=== PATIENT | female | born 1990 | race Caucasian/White ===

== ENCOUNTER 2024-12-12 12:46 | Emergency (ER) | payer OTHER, SELFPAY ==
[2024-12-12 13:02] VITALS: BP 127/82; BP 150/100; PULSE 106; PULSE 120; RESP 25; TEMP 36.7; O2SAT 100; O2SAT 95; BMI 29.3
--- NOTE | 2024-12-12 13:04 | ED_ITS ---
HPI - Allergic Reaction General Chief complaint: Allergic Reaction Stated complaint: ANAPHYLAXIS,13 WKS PREG,ALLERGY TO PEANUTS PER EMS Time Seen by Provider: 12/12/24 12:49 Source: patient and EMS Mode of arrival: EMS Limitations: no limitations History of Present Illness HPI narrative: This is a 34 years old the patient presented to the emergency department complaining of allergic reaction. She was in the shower she became I was sudden onset of the wheezing itching ambulance was called she was given epinephrine nebulizer albuterol and IV Solu-Medrol patient is also about 13 weeks gestation complaint: allergic reaction Onset (ago): hour(s) (1) Exposure: unknown Symptoms: difficulty breathing Severity: moderate Treatment prior to arrival: none Related Data Previous Rx's ?Medication ?Instructions ?Recorded epinephrine 0.3 mg/0.3 mL 0.3 mg (0.3 mL) IM Q10M PRN 12/12/24 injection, auto-injector (EpiPen) anaphylaxis #1 ea Allergies Allergy/AdvReac Type Severity Reaction Status Date / Time peanut Allergy Severe Anaphylaxis Verified 12/12/24 13:05 Review of Systems 2 Cardiovascular: Cardiovascular: Reports no additional cardiovascular complaints Respiratory: Respiratory: Reports as per HPI Gastrointestinal: Gastrointestinal: Reports no additional gastrointestinal complaints [facility] Past Medical History Attestation statement: The following information was validated with the patient. [facility] Narrative: Asthma peanut allergy Social History Social History Smoked in Last 30 Days: No Use of substances other than those prescribed or required for medical reasons: No Advance Directives: No Advance Directives Information Provided: Yes Do you have a plan to hurt others: No Plan Patient : No Physical Exam ED Vital Signs: Vital Signs - 24 hr 12/12/24 13:02 12/12/24 13:13 12/12/24 13:18 Temperature 98.0 F Pulse Rate 106 H 107 H 102 H Respiratory Rate 25 H 18 22 H Blood Pressure 127/82 120/68 Pulse Oximetry 95 98 Oxygen Delivery Method Room Air Room Air BMI result Body Mass Index 29.3 No acute distress Const General: cooperative Nutritional Appearance: average body habitus Orientation/consciousness: patient oriented x3 HENMT Head: Yes normal to inspection Face and sinus: Yes normal facial exam Mouth: Normal oral and palatal mucosa present Neck Neck: Yes normal visual inspection Chest Chest palpation & inspection: normal inspection of the chest Resp Auscultation: rhonchi and wheezes Cardio Jugular venous distension: no JVD Rate: regular rate Rhythm: regular rhythm GI Inspection: Yes normal to inspection Palpation (GI): Soft to palpation, not firm and nontender Skin General skin exam: no rashes or lesions noted, elasticity normal and turgor normal Neuro General: patient oriented x3 Cranial nerves: Yes CN's II-XII intact bilaterally Course Reevaluation(s) Reevaluation #1: On re-examination lungs are clear asymptomatic at this time we will observe 1 more hour and if remained stable we will discharge. I perform a POCUS OB ultrasound baby is moving well heart rate detected about 150 Time: 14:47 Reevaluation #2: Lungs clear feeling much better anticipate discharge Time: 15:20 Medications Administered Discontinued Medications Generic Name Dose Route Start Last Admin Trade Name Freq PRN Reason Stop Dose Admin Albuterol/Ipratropium 3 ml 12/12/24 13:17 12/12/24 13:18 Albuterol/Iprat 2.5/0.5mg 3 Ml Ampul.Neb INHALE 12/12/24 13:18 3 ml ONCE ONE Administration Famotidine 20 mg 12/12/24 13:03 12/12/24 13:12 Famotidine/Pf 20 Mg/2 Ml Vial IVPUSH 12/12/24 13:04 20 mg ONCE ONE Administration Sodium Chloride 1,000 mls @ 999 mls/hr 12/12/24 13:15 12/12/24 14:38 Ns IVCONT 12/12/24 14:15 Infused .Q1H1M NATAN Infusion Medical Decision Making Medical Decision Making [facility] Narrative: Patient is here with a possible allergic reaction to peanuts already got epinephrine/Solu-Medrol/low nebs. We will continue nebulizer we will add Pepcid IV fluid 15:20 she is feeling much better at this point I think she can be discharged home lungs are clear he is unclear what precipitated the allergic reaction she has an allergy to peanuts but she did not eat any peanuts. The patient was told to follow-up with the primary care physician on Saturday she may need director transition referral EpiPen was sent to the pharmacy Differential Diagnosis Differential Diagnoses: The differential diagnosis associated with the presentation includes Allergic reaction/asthma exacerbation Admission/Observation Consideration of admission/observation: Escalation of care including admission/observation considered Lab Data MDM Lab Attestation statement: I reviewed the patient's lab results. 12/12/24 13:18 12/12/24 13:19 Labs: Lab Results 12/12/24 12/12/24 Range/Units 13:18 13:19 WBC 15.2 H (4.8-10.8) X10*3/uL RBC 4.52 (4.20-5.50) X10*6/uL Hgb 13.7 (12.0-16.0) g/dl Hct 41.1 (37.0-47.0) % MCV 90.9 (80.0-98.0) fL MCH 30.3 (27.0-33.0) pg MCHC 33.3 (31.0-35.0) g/dl RDW 13.0 (11.0-16.0) % Plt Count 339 (160-400) X10*3/uL MPV 8.9 L (9.4-12.3) fL Immature Gran % (Auto) 0.5 H (0.0-0.4) % Neut % (Auto) 77.7 H (45-73) % Lymph % (Auto) 17.4 L (20-40) % [place] % (Auto) 3.0 (2-11) % Eos % (Auto) 1.1 (0-4) % Baso % (Auto) 0.3 (0-2) % Lymph # (Auto) 2.7 (1.2-4.9) X10*3/uL [place] # (Auto) 0.5 (0.1-1.2) X10*3/uL Eos # (Auto) 0.2 (0.0-0.4) X10*3/uL Baso # (Auto) 0.1 (0.0-0.2) X10*3/uL Abs Immat Gran (auto) 0.08 H (0.00-0.03) X10*3/uL Absolute Neuts (auto) 11.8 H (2.0-8.3) x10*3/uL Absolute Nucleated RBC 0.000 (0.0-0.012) X10*3/uL Nucleated RBC % (auto) 0.0 (0.0-0.2) /100WBC Sodium 141 (135-145) mmol/L Potassium 3.5 (3.3-5.1) mmol/L Chloride 106 (96-108) mmol/L Carbon Dioxide 20 L (22-29) mmol/L Anion Gap 19 (12-20) BUN 11 (9-16) mg/dL Creatinine 0.60 (0.5-1.4) mg/dL Estim Creat Clear Calc 112.6 Estimated GFR > 60 Random Glucose 119 H (60-115) mg/dL Calcium 9.3 (8.4-10.2) mg/dL Total Bilirubin 0.3 (0.0-1.0) mg/dL AST 19 (5-31) U/L ALT 12 (0-31) U/L Alkaline Phosphatase 67 (39-117) U/L Total Protein 7.1 (6.5-8.0) g/dL Albumin 3.9 (3.5-5.0) g/dL Discharge Plan Discharge Clinical Impression: Allergic reaction Qualifiers: Encounter type: initial encounter Qualified Code(s): T78.40XA - Allergy, unspecified, initial encounter Patient Disposition: Home, Self-Care Instructions: Anaphylaxis (ED) Additional Instructions: Please follow-up with your primary care physician on Saturday we sent a prescription for EpiPen at your pharmacy Prescriptions: New epinephrine [EpiPen] 0.3 mg/0.3 mL auto-injector 0.3 mg IM Q10M PRN (Reason: anaphylaxis) Qty: 1 0RF Rx Instructions: for 2 doses Referrals: Physician,Unknown J [Primary Care Provider] - 12/14/24 Print Language: Haitian
[2024-12-12] MEDS: Famotidine/PF 20 MG/2 ML VIAL IVPUSH (13:12)
[2024-12-12] MEDS: 0.9 % Sodium Chloride 1,000 ML 999 ML IVCONT (13:12)
[2024-12-12 13:13] VITALS: BP 120/68; PULSE 107; RESP 18; O2SAT 98
[2024-12-12 13:18] VITALS: PULSE 102; RESP 22; O2SAT 96
[2024-12-12] MEDS: Albuterol/Iprat 2.5/0.5MG 3 ML AMPUL.NEB INHALE (13:18)
[2024-12-12 13:24] LABS: MANUAL DIFF FLAG NO
[2024-12-12 13:29] LABS: Basophils Absolute Auto 0.1 X10*3/uL (0.0-0.2); Basophils Percent Auto 0.3 % (0-2); Eosinophils Absolute Auto 0.2 X10*3/uL (0.0-0.4); Eosinophils Percent Auto 1.1 % (0-4); Hematocrit 41.1 % (37.0-47.0); Hemoglobin 13.7 g/dl (12.0-16.0); Imm Gran Abs Auto 0.08 X10*3/uL (0.00-0.03); Imm Gran Pct Auto 0.5 % (0.0-0.4); Lymphocytes Absolute Auto 2.7 X10*3/uL (1.2-4.9); Lymphocytes Percent Auto 17.4 % (20-40); Mean Corpuscular HGB Conc 33.3 g/dl (31.0-35.0); Mean Corpuscular Hemoglobin 30.3 pg (27.0-33.0); Mean Corpuscular Volume 90.9 fL (80.0-98.0); Mean Platelet Volume 8.9 fL (9.4-12.3); Monocytes Absolute Auto 0.5 X10*3/uL (0.1-1.2); Neutrophils Absolute Auto 11.8 x10*3/uL (2.0-8.3); Neutrophils Percent Auto 77.7 % (45-73); Platelet Count 339 X10*3/uL (160-400); Red Blood Count 4.52 X10*6/uL (4.20-5.50); White Blood Count 15.2 X10*3/uL (4.8-10.8)
[2024-12-12 13:39] LABS: Alanine Aminotransferase 12 U/L (0-31); Albumin Level 3.9 g/dL (3.5-5.0); Alkaline Phosphatase 67 U/L (39-117); Anion Gap 19 (12-20); Aspartate Amino Transferase 19 U/L (5-31); Bilirubin Total 0.3 mg/dL (0.0-1.0); Blood Urea Nitrogen 11 mg/dL (9-16); Calcium 9.3 mg/dL (8.4-10.2); Carbon Dioxide 20 mmol/L (22-29); Chloride 106 mmol/L (96-108); Creatinine Clr Calc Pharmacy 112.6; Estimated Glomerular Filt Rate > 60; Glucose Random 119 mg/dL (60-115); Potassium 3.5 mmol/L (3.3-5.1); Sodium 141 mmol/L (135-145); Total Protein 7.1 g/dL (6.5-8.0)
[2024-12-12 16:10] VITALS: BP 118/76; PULSE 98; RESP 16; TEMP 36.8; O2SAT 99
== END 2024-12-12 16:11 | disposition home or self-care (01) ==
PROVIDERS: Emergency Provider Emergency Medicine
DX: O26.891 Other specified pregnancy related conditions, first trimester (principal); Z3A.13 13 weeks gestation of pregnancy; T78.40XA Allergy, unspecified, initial encounter; X58.XXXA Exposure to other specified factors, initial encounter
CPT/HCPCS: 36415; 80053; 85025; 94640; 96361; 96374; 99285; J1308